=== PATIENT | female | born 1975 | race African-American/Black ===

== ENCOUNTER 2019-09-29 12:04 | Emergency (ER) | payer OTHER ==
[2019-09-29 12:20] VITALS: BMI 27.3
--- NOTE | 2019-09-29 12:49 | PDOC ---
History of Present Illness - General Chief Complaint: Cold Symptoms Stated Complaint: BODY ACHES/CHILLS Time Seen by Provider: 09/29/19 12:44 History Source: Patient - History of Present Illness Timing/Duration: reports: other Past History - Past Medical History Allergies/Adverse Reactions: Allergies Allergy/AdvReac Type Severity Reaction Status Date / Time No Known Allergies Allergy Verified 09/29/19 12:17 Home Medications: Ambulatory Orders Albuterol Sulfate Inhaler - [Ventolin HFA Inhaler -] 2 inh PO Q4H #1 inh Promethazine HCl/Codeine [Prometh-Codein 6.25-10 mg/5 ml] 5 ml PO TID #60 ml 04/06 levoFLOXacin [Levaquin -] 500 mg PO DAILY #7 tablet 12/26/15 COPD: No - Surgical History Abdominal Surgery: Yes (tubal ligation) - Immunization History Immunization Up to Date: Yes - Psycho Social/Smoking Cessation Hx Smoking History: Never smoked Number of Cigarettes Smoked Daily: 8 Information on smoking cessation initiated: No Hx Alcohol Use: No Drug/Substance Use Hx: No Substance Use Type: None Review of Systems - Review of Systems Constitutional: Yes: Fever, Malaise HEENTM: No: Ear Pain, Throat Pain Respiratory: Yes: Cough. No: Shortness of Breath, Wheezing Cardiac (ROS): No: Chest Pain ABD/GI: No: Diarrhea, Nausea, Vomiting : Yes: Frequency. No: Burning, Dysuria, Flank Pain, Hematuria *Physical Exam - Vital Signs Last Vital Signs Temp Pulse Resp BP Pulse Ox 98.2 F 73 16 128/78 100 09/29/19 12:17 09/29/19 12:17 09/29/19 12:17 09/29/19 12:17 09/29/19 12:17 - Physical Exam General Appearance: Yes: Appropriately Dressed. No: Apparent Distress HEENT: positive: Normal ENT Inspection, Normal Voice, TMs Normal, Pharynx Normal. negative: Scleral Icterus (R), Scleral Icterus (L) Neck: positive: Supple. negative: Lymphadenopathy (R), Lymphadenopathy (L) Respiratory/Chest: positive: Lungs Clear, Normal Breath Sounds. negative: Respiratory Distress Cardiovascular: positive: Regular Rate, S1, S2 Gastrointestinal/Abdominal: positive: Soft. negative: Tender Musculoskeletal: negative: CVA Tenderness Integumentary: positive: Dry, Warm Neurologic: positive: Fully Oriented, Alert, Normal Mood/Affect Medical Decision Making - Medical Decision Making 09/29/19 12:44 44 yo F, smoker, s/p tubal ligation remotely, here with generalized body aches with malaise, cough, headache, cold sore and subj fever that started 4 days ago. No neck stiffness, photophobia, sob, wheezing or CP. Taking over-the- counter meds. Also complaining of vague lower abdominal pain with possible urinary frequency, otherwise no dysuria, hematuria, nausea vomiting. see exam Viral syndrome Exam unremarkable -flu sent -UA given urinary freq -CXR given tob use 09/29/19 15:00 Chest x-ray and urine unremarkable. Flu negative. Patient discharged in stable conditions with supportive treatment Discharge - Discharge Information Problems reviewed: Yes Clinical Impression/Diagnosis: Viral syndrome Condition: Good Disposition: HOME - Follow up/Referral - Patient Discharge Instructions Patient Printed Discharge Instructions: DI for Viral Syndrome - Post Discharge Activity Work/Back to School Note: Back to Work
[2019-09-29] MEDS ORDERED: IBUPROFEN 400 MG TABLET (FP) PO ONE ×2 (12:50→12:56)
[2019-09-29 13:55] VITALS: BP 121/73; PULSE 66; TEMP 98.7
[2019-09-29 13:55] LABS: EPI CELLS 3.6 /HPF (0-5/HPF); HYALINE CASTS 14 /lpf (0-8); PH,URINE 5.5 (5.0-8.0); URINE APPEARANCE CLEAR; URINE BACTERIA 15.3 /hpf (NEGATIVE); URINE BILIRUBIN NEGATIVE (NEGATIVE); URINE COLOR YELLOW; URINE GLUCOSE (UA) NEGATIVE (NEGATIVE); URINE KETONE TRACE (NEGATIVE); URINE LEUK ESTERASE TRACE (NEGATIVE); URINE NITRITE NEGATIVE (NEGATIVE); URINE PROTEIN NEGATIVE (NEGATIVE); URINE RBC 2 /hpf (0-4); URINE WBC 7 /hpf (0-5)
== END 2019-09-29 14:25 | disposition home or self-care (01) ==
LOC: JER 12:04
DX: B34.9 Viral infection, unspecified (principal); F17.210 Nicotine dependence, cigarettes, uncomplicated
CPT/HCPCS: 71046-TC-FY; 81003; 87086; 87804; 99282-25

== ENCOUNTER 2021-04-13 13:21 | Emergency (ER) | payer OTHER ==
[2021-04-13 13:28] VITALS: BMI 29.6
[2021-04-13] MEDS ORDERED: ACETAMINOPHEN 325 MG TABLET (FP) PO ONE (14:26)
[2021-04-13] MEDS ORDERED: ACETAMINOPHEN 325 MG TABLET (FP) ONE (14:43)
[2021-04-13] MEDS ORDERED: IBUPROFEN 400 MG TABLET (FP) PO ONE ×2 (17:21→17:24)
[2021-04-13 17:48] VITALS: BP 140/89; PULSE 73; TEMP 98.6
== END 2021-04-13 19:08 | disposition home or self-care (01) ==
LOC: JER 13:21
DX: M79.604 Pain in right leg (principal)
CPT/HCPCS: 93005; 93010; 93971-TC; 99285-25; C9803; U0003; U0005

== ENCOUNTER 2021-04-28 06:07 | Emergency (ER) | payer OTHER ==
[2021-04-28 06:30] VITALS: BMI 31.3
[2021-04-28 07:05] LABS: BASO % 0.5 % (0-2.0); EOS % 0.2 % (0-4.5); HEMATOCRIT 36.1 % (32.4-45.2); HEMOGLOBIN 12.2 GM/dL (10.7-15.3); LYMPH % 16.3 % (8-40); MCH 32.6 pg (25.7-33.7); MCHC 33.8 g/dl (32.0-36.0); MEAN CELL VOLUME 96.2 fl (80-96); MEAN PLT VOLUME 8.7 fl (7.5-11.1); PLATELET COUNT 145 10^3/uL (134-434); RBC 3.76 M/mm3 (3.60-5.2); WHITE BLOOD COUNT 5.3 K/mm3 (4.0-10.0)
[2021-04-28 07:07] LABS: INR 0.92 (0.83-1.09); PROTHROMBIN TIME (PATIENT) 11.4 SEC (9.7-13.0)
[2021-04-28 07:10] LABS: ACTIVATED PTT 27.6 SECONDS (25.2-36.5)
[2021-04-28 07:13] LABS: CHLORIDE 107 mmol/L (98-107); SODIUM 137 mmol/L (136-145)
[2021-04-28 07:15] LABS: ALBUMIN 3.4 g/dl (3.4-5.0); ANION GAP 10 MMOL/L (8-16); BLOOD UREA NITROGEN 7.4 mg/dL (7-18); CALCIUM 7.7 mg/dL (8.5-10.1); CO2 20 mmol/L (21-32)
[2021-04-28 07:16] LABS: GLUCOSE,RANDOM 101 mg/dL (74-106)
[2021-04-28 07:18] LABS: SGPT/ALT 29 U/L (13-61)
[2021-04-28 07:19] LABS: CREATININE 0.7 mg/dL (0.55-1.3); SGOT/AST 43 U/L (15-37)
[2021-04-28 07:20] LABS: BILIRUBIN,TOTAL 0.4 mg/dL (0.2-1); TOT PROT 7.1 g/dl (6.4-8.2)
[2021-04-28 07:21] LABS: ALK PHOS 60 U/L (45-117)
[2021-04-28] MEDS ORDERED: ACETAMINOPHEN 1000 MG/100 ML VIAL (NON FORMULARY) IVPB ONE (08:16)
[2021-04-28] MEDS ORDERED: ACETAMINOPHEN INJECTION 100 ML IVPB ONE (08:19)
[2021-04-28] MEDS ORDERED: KETOROLAC TROMETHAMINE 30 MG/1 ML VIAL IVPUSH ONE (09:58)
[2021-04-28] MEDS ORDERED: SODIUM CHLORIDE 0.9% 500 ML INFUS.BAG IV ONE (09:58)
[2021-04-28] MEDS ORDERED: KETOROLAC TROMETHAMINE 15 MG/ML VIAL ONE (10:08)
[2021-04-28 11:29] VITALS: BP 129/84; PULSE 67; TEMP 98.3
== END 2021-04-28 11:30 | disposition home or self-care (01) ==
LOC: JER 06:07
PROC: 3E033NZ Introduction of Analgesics, Hypnotics, Sedatives into Peripheral Vein, Percutaneous Approach (ICD-10-PCS; principal; 2021-04-28)
PROC: 3E0333Z Introduction of Anti-inflammatory into Peripheral Vein, Percutaneous Approach (ICD-10-PCS; 2021-04-28)
DX: J18.9 Pneumonia, unspecified organism (principal); R50.9 Fever, unspecified; M79.10 Myalgia, unspecified site
CPT/HCPCS: 36415; 71045-TC-FY; 71275-TC; 80053; 82550; 84484; 84703; 85025; 85610; 85730; 93005; 93010; 99285-25; C9803; J0131; Q9967; U0003; U0005

== ENCOUNTER 2021-07-06 11:16 | Emergency (ER) | payer OTHER ==
[2021-07-06 11:23] VITALS: BP 122/86; PULSE 76; TEMP 98.2; BMI 29.4
[2021-07-06] MEDS ORDERED: SODIUM CHLORIDE 1,000 ML IV SCH (12:45)
[2021-07-06 13:18] LABS: EOS % 6.2 % (0-4.5); HEMATOCRIT 36.5 % (32.4-45.2); HEMOGLOBIN 12.3 GM/dL (10.7-15.3); LYMPH % 21.7 % (8-40); MCH 34.1 pg (25.7-33.7); MCHC 33.8 g/dl (32.0-36.0); MEAN PLT VOLUME 8.9 fl (7.5-11.1); MONO % 4.8 % (3.8-10.2); NEUT % 66.3 % (42.8-82.8); PLATELET COUNT 243 10^3/uL (134-434); RBC 3.61 M/mm3 (3.60-5.2); WHITE BLOOD COUNT 8.5 K/mm3 (4.0-10.0)
[2021-07-06 13:29] LABS: INR 0.91 (0.83-1.09); PROTHROMBIN TIME (PATIENT) 11.1 SEC (9.7-13.0)
[2021-07-06 13:32] LABS: ACTIVATED PTT 23.8 SECONDS (25.2-36.5)
[2021-07-06 13:53] LABS: CHLORIDE 110 mmol/L (98-107); SODIUM 140 mmol/L (136-145)
[2021-07-06 13:56] LABS: ALBUMIN 3.4 g/dl (3.4-5.0); ANION GAP 6 MMOL/L (8-16); BLOOD UREA NITROGEN 10.1 mg/dL (7-18); CALCIUM 8.7 mg/dL (8.5-10.1); CO2 24 mmol/L (21-32); GLUCOSE,RANDOM 79 mg/dL (74-106)
[2021-07-06 13:58] LABS: CHOLESTEROL 179 mg/dL (50-200); CREATININE 0.6 mg/dL (0.55-1.3); SGOT/AST 15 U/L (15-37); SGPT/ALT 20 U/L (13-61)
[2021-07-06 14:00] LABS: BILIRUBIN,TOTAL 0.3 mg/dL (0.2-1); LDL CHOLESTEROL (ONLY SJRH) 81 mg/dL (5-100); TOT PROT 7.2 g/dl (6.4-8.2); TRIGLYCERIDES 125 mg/dL (0-150)
[2021-07-06 14:01] LABS: ALK PHOS 49 U/L (45-117); HDL CHOLESTEROL 72 mg/dL (40-60)
[2021-07-06] MEDS ORDERED: ACYCLOVIR 400 MG TABLET PO ONE (15:13)
[2021-07-06 15:32] LABS: EPI CELLS 34 /uL (0-25.1); HYALINE CASTS 2 /uL (0-3.1); PH,URINE 5.5 (5.0-8.0); URINE APPEARANCE CLOUDY; URINE BACTERIA 106 /uL (0-1359); URINE BILIRUBIN NEGATIVE (NEGATIVE); URINE COLOR YELLOW; URINE GLUCOSE (UA) NEGATIVE (NEGATIVE); URINE KETONE NEGATIVE (NEGATIVE); URINE LEUK ESTERASE NEGATIVE (NEGATIVE); URINE NITRITE NEGATIVE (NEGATIVE); URINE PROTEIN NEGATIVE (NEGATIVE); URINE RBC 8 /uL (0-23.9); URINE UROBILINOGEN 0.2 mg/dL (0.2-1.0); URINE WBC 12 /uL (0-25.8)
[2021-07-06] MEDS ORDERED: ACYCLOVIR 200 MG CAPSULE ONE (15:53)
[2021-07-06] MEDS ORDERED: ASPIRIN 81 MG CHEWABLE TABLETS PO ONE (16:32)
== END 2021-07-06 18:05 | disposition left against medical advice (07) ==
LOC: JER 11:16
DX: G45.9 Transient cerebral ischemic attack, unspecified (principal); B00.1 Herpesviral vesicular dermatitis
CPT/HCPCS: 36415; 70450-TC; 71045-TC-FY; 80053; 80061; 81003; 82550; 83036; 84484; 84703; 85025; 85610; 85730; 93005; 93010; 99285-25; C9803; U0003; U0005

== ENCOUNTER 2021-08-04 10:31 | Emergency (ER) | payer OTHER ==
[2021-08-04 10:38] VITALS: BP 147/95; PULSE 81; TEMP 98.1; BMI 29.6
[2021-08-04] MEDS ORDERED: DIPHTH,PERTUSS(ACELL),TET 0.5 ML DISP.SYRIN IM ONE ×2 (11:14→11:17)
[2021-08-04] MEDS ORDERED: IBUPROFEN 600 MG TABLET (FP) PO ONE ×2 (11:43→11:53)
== END 2021-08-04 12:04 | disposition home or self-care (01) ==
LOC: JERFT 10:31
PROC: 0HQFXZZ Repair Right Hand Skin, External Approach (ICD-10-PCS; principal; 2021-08-04)
PROC: 3E0234Z Introduction of Serum, Toxoid and Vaccine into Muscle, Percutaneous Approach (ICD-10-PCS; 2021-08-04)
DX: S61.210A Laceration without foreign body of right index finger without damage to nail, initial encounter (principal); W25.XXXA Contact with sharp glass, initial encounter; Y92.9 Unspecified place or not applicable
CPT/HCPCS: 12001-25; 90471; 90715; 99284-25

== ENCOUNTER 2022-03-19 17:05 | Emergency (ER) | payer OTHER ==
[2022-03-19 17:17] VITALS: BP 122/87; PULSE 83; TEMP 98; BMI 31.8
== END 2022-03-19 19:02 | disposition home or self-care (01) ==
LOC: JER 17:05 → JERFT 17:05
DX: S09.93XA Unspecified injury of face, initial encounter (principal); W01.0XXA Fall on same level from slipping, tripping and stumbling without subsequent striking against object, initial encounter
CPT/HCPCS: 70486-TC; 99284-25

== ENCOUNTER 2022-06-20 14:16 | Emergency (ER) | payer OTHER ==
[2022-06-20 14:22] VITALS: BP 119/81; PULSE 74; RESP 18; TEMP 98; BMI 29.0
[2022-06-20 17:04] LABS: EPI CELLS >36 /uL (0-25.1); HYALINE CASTS 2 /uL (0-3.1); PH,URINE 5.5 (5.0-8.0); URINE APPEARANCE CLEAR; URINE BACTERIA 117 /uL (0-1359); URINE BILIRUBIN NEGATIVE (NEGATIVE); URINE COLOR YELLOW; URINE GLUCOSE (UA) NEGATIVE (NEGATIVE); URINE KETONE NEGATIVE (NEGATIVE); URINE LEUK ESTERASE 1+ (NEGATIVE); URINE NITRITE NEGATIVE (NEGATIVE); URINE PROTEIN NEGATIVE (NEGATIVE); URINE RBC 7 /uL (0-23.9); URINE UROBILINOGEN 0.2 mg/dL (0.2-1.0); URINE WBC 25 /uL (0-25.8)
[2022-06-20] MEDS ORDERED: ACETAMINOPHEN 500 MG TABLET (FP) PO ONE (17:11)
[2022-06-20] MEDS ORDERED: KETOROLAC TROMETHAMINE 30 MG/1 ML VIAL IM ONE (17:11)
[2022-06-20] MEDS ORDERED: ACETAMINOPHEN 325 MG TABLET (FP) ONE (17:18)
[2022-06-20] MEDS ORDERED: KETOROLAC TROMETHAMINE 30 MG/1 ML VIAL ONE (17:18)
== END 2022-06-20 18:52 | disposition home or self-care (01) ==
LOC: JER 14:16
PROC: 3E0233Z Introduction of Anti-inflammatory into Muscle, Percutaneous Approach (ICD-10-PCS; principal; 2022-06-20)
DX: N39.0 Urinary tract infection, site not specified (principal)
CPT/HCPCS: 76856-TC; 81003; 87086; 99284-25

== ENCOUNTER 2022-10-30 10:43 | Emergency (ER) | payer OTHER ==
[2022-10-30 11:17] VITALS: BP 155/97; PULSE 77; RESP 18; TEMP 99.5; BMI 29.7
[2022-10-30] MEDS ORDERED: IBUPROFEN 600 MG TABLET (FP) PO ONE ×2 (12:17→12:21)
[2022-10-30] MEDS ORDERED: CLINDAMYCIN HCL 300 MG CAPSULE PO ONE (12:18)
[2022-10-30] MEDS ORDERED: CLINDAMYCIN HCL 150 MG CAPSULE (FP) PO ONE (12:20)
[2022-10-30] MEDS ORDERED: CLINDAMYCIN HCL 150 MG CAPSULE (FP) ONE (12:21)
== END 2022-10-30 13:13 | disposition home or self-care (01) ==
LOC: JER 10:43 → JERFT 10:43
PROC: 0C9XXZ0 Drainage of Lower Tooth, External Approach, Single (ICD-10-PCS; principal; 2022-10-30)
DX: K04.7 Periapical abscess without sinus (principal)
CPT/HCPCS: 99283-25

== ENCOUNTER 2024-05-25 16:06 | Emergency (ER) | payer OTHER ==
[2024-05-25 16:36] VITALS: RESP 18; TEMP 98.1; BMI 32.2
[2024-05-25 17:06] LABS: BASO % 0.7 % (0-2.0); EOS % 3.3 % (0-4.5); HEMATOCRIT 36.8 % (32.4-45.2); HEMOGLOBIN 12.1 GM/dL (10.7-15.3); LYMPH % 21.8 % (8-40); MCH 30.9 pg (25.7-33.7); MCHC 32.8 g/dl (32.0-36.0); MEAN CELL VOLUME 94.2 fl (80-96); MEAN PLT VOLUME 8.3 fl (7.5-11.1); MONO % 5.9 % (3.8-10.2); NEUT % 68.3 % (42.8-82.8); PLATELET COUNT 205 10^3/uL (134-434); RDW 15.5 % (11.6-15.6); WHITE BLOOD COUNT 8.4 K/mm3 (4.0-10.0)
[2024-05-25 17:14] LABS: PROTHROMBIN TIME (PATIENT) 11.3 SEC (9.7-13.0)
[2024-05-25] MEDS ORDERED: METOCLOPRAMIDE HCL INJECTION 10 MG/2 ML VIAL ONE (17:21)
[2024-05-25] MEDS ORDERED: ACETAMINOPHEN INJECTION 100 ML IVPB ONE (17:21)
[2024-05-25 17:26] LABS: CHLORIDE 107 mmol/L (98-107); POTASSIUM 4.3 mmol/L (3.5-5.1); SODIUM 135 mmol/L (136-145)
[2024-05-25] MEDS: LACTATED RINGERS SOLUTION 1000 ML INFUS.BAG IV ONE (17:27)
[2024-05-25 17:28] LABS: BLOOD UREA NITROGEN 14.6 mg/dL (7-18)
[2024-05-25] MEDS: METOCLOPRAMIDE HCL INJECTION 10 MG/2 ML VIAL IVPB ONE (17:28)
[2024-05-25] MEDS: ACETAMINOPHEN 1000 MG/100 ML BAG IVPB ONE (17:28)
[2024-05-25 17:29] LABS: GLUCOSE,RANDOM 81 mg/dL (74-106)
[2024-05-25 17:30] LABS: ALBUMIN 3.2 g/dl (3.4-5.0); ANION GAP 7 mmol/L (4-13); CO2 20 mmol/L (21-32)
[2024-05-25 17:32] LABS: CHOLESTEROL 159 mg/dL (50-200)
[2024-05-25 17:33] LABS: CREATININE 0.7 mg/dL (0.55-1.3); LDL CHOLESTEROL (ONLY SJRH) 66 mg/dL (5-100); SGOT/AST 22 U/L (15-37); SGPT/ALT 18 U/L (13-61)
[2024-05-25 17:34] LABS: BILIRUBIN,TOTAL 0.4 mg/dL (0.2-1)
[2024-05-25 17:35] LABS: ALK PHOS 41 U/L (45-117); HDL CHOLESTEROL 61 mg/dL (40-60); TOT PROT 6.6 g/dl (6.4-8.2)
[2024-05-25 19:34] VITALS: BP 142/91; PULSE 77
== END 2024-05-25 20:41 | disposition left against medical advice (07) ==
LOC: JER 16:06
PROC: 3E033NZ Introduction of Analgesics, Hypnotics, Sedatives into Peripheral Vein, Percutaneous Approach (ICD-10-PCS; principal; 2024-05-25)
PROC: 3E033GC Introduction of Other Therapeutic Substance into Peripheral Vein, Percutaneous Approach (ICD-10-PCS; 2024-05-25)
DX: R55 Syncope and collapse (principal); R20.0 Anesthesia of skin; R29.810 Facial weakness
CPT/HCPCS: 36415; 70450-TC; 70496-TC; 70498-TC; 71275-TC; 80053; 80061; 82550; 82962; 83036; 84484; 84703; 85025; 85610; 85730; 86850; 86900; 86901; 93005; 93010; 99285-25; J0131; Q9967

== ENCOUNTER 2025-03-10 15:59 | Emergency (ER) | payer OTHER ==
[2025-03-10 16:21] VITALS: BP 153/92; PULSE 72; RESP 20; TEMP 98.4; BMI 32.5
[2025-03-10] MEDS ORDERED: LIDOCAINE 4% PATCH TP ONE (17:30)
[2025-03-10] MEDS ORDERED: diazePAM 5 MG TABLET ONE (17:31)
[2025-03-10] MEDS ORDERED: KETOROLAC TROMETHAMINE 30 MG/1 ML VIAL ONE (17:31)
[2025-03-10] MEDS: LIDOCAINE 5% TOPICAL PATCH TP ONE (17:36)
[2025-03-10] MEDS: KETOROLAC TROMETHAMINE 30 MG/1 ML VIAL IM ONE (17:36)
[2025-03-10] MEDS: diazePAM 5 MG TABLET PO ONE (17:37)
[2025-03-10] MEDS: ACETAMINOPHEN 325 MG TABLET (FP) PO ONE (17:37)
[2025-03-10] MEDS ORDERED: LIDOCAINE PATCH REMOVAL MC SCH (22:00)
== END 2025-03-10 19:35 | disposition home or self-care (01) ==
LOC: JERFT 15:59
PROC: 3E023GC Introduction of Other Therapeutic Substance into Muscle, Percutaneous Approach (ICD-10-PCS; principal; 2025-03-10)
DX: S80.02XA Contusion of left knee, initial encounter (principal); M62.830 Muscle spasm of back; V89.2XXA Person injured in unspecified motor-vehicle accident, traffic, initial encounter; Y92.410 Unspecified street and highway as the place of occurrence of the external cause
CPT/HCPCS: 73562-TC-LT-FY; 99284-25